=== PATIENT | male | born 1990 | race Caucasian/White ===

== ENCOUNTER 2019-01-21 00:09 | Emergency (ER) | payer MEDICAID ==
[~2019-01-21] VITALS: Ht 177.8 cm; Wt 82.0 kg
[2019-01-21] MEDS ORDERED: HALOPERIDOL LACTATE 5MG/ML VIAL IM STA (00:21)
[2019-01-21] MEDS ORDERED: ONDANSETRON HCL 4MG/2ML INJ IV STA (00:21)
[2019-01-21] MEDS ORDERED: MAGNESIUM/ALUMINUM HYDROXIDE/SIMETHICONE 30ML UDC PO STA (00:21)
[2019-01-21] MEDS ORDERED: SODIUM CHLORIDE 0.9% 1,000 ML IV ONE (00:21)
[2019-01-21] MEDS ORDERED: VISCOUS LIDOCAINE 2% 15 ML UDC PO STA (00:21)
[2019-01-21 00:31] LABS: BASOPHILS % 0.5 % (0.0-2.0); EOSINOPHILS % 1.9 % (0.0-5.0); HEMATOCRIT. 48.7 % (42.0-52.0); HEMOGLOBIN. 16.9 g/dL (14.0-18.0); LYMPHOCYTES % 25.1 % (20.0-50.0); MEAN CORPUSCULAR HEMOGLOBIN 30.6 pg (28.0-32.0); MEAN CORPUSCULAR VOLUME 88.4 fL (80.0-94.0); MEAN PLATELET VOLUME 8.5 fl (7.4-10.4); MONOCYTES % 9.1 % (2.0-8.0); NEUTROPHILS % 63.4 % (40.0-76.0); PLATELET 229 x1000/uL (130-400); RED BLOOD CELL COUNT 5.51 mill/uL (4.7-6.1); RED CELL DISTRIBUTION WIDTH 13.5 % (11.6-14.6)
[2019-01-21 00:34] LABS: CHLORIDE 110 mEq/L (98-107)
[2019-01-21 00:38] LABS: ETHANOL BLOOD < 10 mg/dL
[2019-01-21] MEDS ORDERED: HYDROCODONE/ACETAMINOPHEN 5/325MG TABLET PO ONE (01:45)
[2019-01-21 02:45] LABS: CLARITY URINE CLEAR (CLEAR); COLOR URINE YELLOW (YELLOW); KETONES URINE NEGATIVE (NEGATIVE); LEUKOCYTE ESTERASE URINE NEGATIVE (NEGATIVE); NITRITE URINE NEGATIVE (NEGATIVE); OCCULT BLOOD URINE 3+ (NEGATIVE); PH URINE 6.5 (4.5-8.0); PROTEIN URINE NEGATIVE (NEGATIVE); SPECIFIC GRAVITY URINE 1.007 (1.005-1.030); UROBILINOGEN URINE 0.2 E.U./dL (0.2-1.0)
[2019-01-21 02:57] LABS: *AMPHETAMINES SCREEN URINE PRESUMTIVE POSITIVE (NEGATIVE); *BARBITURATES SCREEN URINE NEGATIVE (NEGATIVE); *BENZODIAZEPINES SCREEN URINE NEGATIVE (NEGATIVE); *COCAINE SCREEN URINE PRESUMTIVE POSITIVE (NEGATIVE); CANNABINOID URINE SCREEN PRESUMTIVE POSITIVE (NEGATIVE); METHADONE URINE SCREEN NEGATIVE (NEGATIVE); OPIATES URINE SCREEN NEGATIVE (NEGATIVE)
[2019-01-21 02:58] LABS: PHENCYCLIDINE URINE SCREEN NEGATIVE (NEGATIVE)
[2019-01-21 03:22] VITALS: BP 119/75
== END 2019-01-21 03:24 | disposition home or self-care (01) ==
LOC: ER 00:09
DX: S20.212A Contusion of left front wall of thorax, initial encounter (principal); S50.01XA Contusion of right elbow, initial encounter; R07.89 Other chest pain; F12.10 Cannabis abuse, uncomplicated; F14.10 Cocaine abuse, uncomplicated; F15.10 Other stimulant abuse, uncomplicated; X58.XXXA Exposure to other specified factors, initial encounter; Y93.89 Activity, other specified; Y92.89 Other specified places as the place of occurrence of the external cause
CPT/HCPCS: 36415; 71045; 71100; 73080; 80053; 80305; 80320; 81003; 82962; 84484; 85025; 99284; J7030; Z7610; G0480

== ENCOUNTER 2019-01-29 12:21 | Emergency (ER) | payer MEDICAID ==
[~2019-01-29] VITALS: Ht 177.8 cm; Wt 91.0 kg
[2019-01-29] MEDS ORDERED: SODIUM CHLORIDE 0.9% 1,000 ML IV ONE (13:41)
[2019-01-29 14:06] LABS: BASOPHILS % 0.7 % (0.0-2.0); EOSINOPHILS % 3.1 % (0.0-5.0); HEMATOCRIT. 43.6 % (42.0-52.0); HEMOGLOBIN. 15.3 g/dL (14.0-18.0); LYMPHOCYTES % 25.1 % (20.0-50.0); MEAN CORPUSCULAR HEMOGLOBIN 30.9 pg (28.0-32.0); MEAN PLATELET VOLUME 8.1 fl (7.4-10.4); MONOCYTES % 11.6 % (2.0-8.0); NEUTROPHILS % 59.5 % (40.0-76.0); PLATELET 218 x1000/uL (130-400); RED BLOOD CELL COUNT 4.95 mill/uL (4.7-6.1); RED CELL DISTRIBUTION WIDTH 13.6 % (11.6-14.6)
[2019-01-29 14:12] LABS: CHLORIDE 108 mEq/L (98-107)
[2019-01-29 16:58] LABS: *AMPHETAMINES SCREEN URINE PRESUMTIVE POSITIVE (NEGATIVE); *BENZODIAZEPINES SCREEN URINE NEGATIVE (NEGATIVE); *COCAINE SCREEN URINE NEGATIVE (NEGATIVE); METHADONE URINE SCREEN NEGATIVE (NEGATIVE); OPIATES URINE SCREEN NEGATIVE (NEGATIVE)
[2019-01-29 16:59] LABS: *BARBITURATES SCREEN URINE NEGATIVE (NEGATIVE); CANNABINOID URINE SCREEN PRESUMTIVE POSITIVE (NEGATIVE); PHENCYCLIDINE URINE SCREEN NEGATIVE (NEGATIVE)
[2019-01-29 18:00] VITALS: BP 132/84
== END 2019-01-29 18:30 | disposition home or self-care (01) ==
LOC: ER 12:21
DX: F16.10 Hallucinogen abuse, uncomplicated (principal); F15.10 Other stimulant abuse, uncomplicated; R07.9 Chest pain, unspecified; F14.10 Cocaine abuse, uncomplicated
CPT/HCPCS: 36415; 71045; 80053; 80305; 84484; 85025; 93005; 99284; J7030

== ENCOUNTER 2020-09-03 13:22 | Emergency (ER) | payer MEDICAID, OTHER ==
[~2020-09-03] VITALS: Ht 180.3 cm; Wt 112.0 kg
[2020-09-03] MEDS ORDERED: IBUPROFEN 600MG TABLET PO ONE (14:30)
[2020-09-03 15:06] VITALS: BP 130/96
[2020-09-03] MEDS ORDERED: IBUP-2029 MT (15:46)
== END 2020-09-03 15:55 | disposition home or self-care (01) ==
LOC: ER 13:22
DX: M25.511 Pain in right shoulder (principal); R03.0 Elevated blood-pressure reading, without diagnosis of hypertension; F17.200 Nicotine dependence, unspecified, uncomplicated; X50.0XXA Overexertion from strenuous movement or load, initial encounter; Y93.89 Activity, other specified; Y92.69 Other specified industrial and construction area as the place of occurrence of the external cause
CPT/HCPCS: 73030; 99283; A4565

== ENCOUNTER 2020-09-11 06:44 | Emergency (ER) | payer OTHER ==
[~2020-09-11] VITALS: Ht 180.3 cm; Wt 99.2 kg
[~2020-09-11 06:44] MED LIST: IBUP-2029 MT
[2020-09-11 06:46] VITALS: BP 139/81
[2020-09-11] MEDS ORDERED: HYDROCODONE/ACETAMINOPHEN 5/325MG TABLET PO ONE (08:00)
[2020-09-11] MEDS ORDERED: IBUP-2030 MT (09:18)
[2020-09-11] MEDS ORDERED: TRAM50TA3 MT (09:18)
== END 2020-09-11 09:51 | disposition home or self-care (01) ==
LOC: ER 06:44
DX: S49.81XA Other specified injuries of right shoulder and upper arm, initial encounter (principal); F14.10 Cocaine abuse, uncomplicated; F15.10 Other stimulant abuse, uncomplicated; X50.0XXA Overexertion from strenuous movement or load, initial encounter; Y93.89 Activity, other specified; Y92.89 Other specified places as the place of occurrence of the external cause; Y99.8 Other external cause status; Z79.899 Other long term (current) drug therapy
CPT/HCPCS: 73000; 73030; 99284

== ENCOUNTER 2020-12-18 11:44 | Emergency (ER) | payer OTHER ==
[~2020-12-18] VITALS: Ht 180.3 cm; Wt 70.0 kg
[~2020-12-18 11:44] MED LIST changes: +IBUP-2030 MT; +TRAM50TA3 MT
[2020-12-18] MEDS ORDERED: CETI10TA6 MT (13:24)
[2020-12-18] MEDS ORDERED: PERM60CR4 TP (13:24)
[2020-12-18 13:46] VITALS: BP 144/70
== END 2020-12-18 13:49 | disposition home or self-care (01) ==
LOC: ER 11:44
DX: B86 Scabies (principal); F14.10 Cocaine abuse, uncomplicated; F15.10 Other stimulant abuse, uncomplicated
CPT/HCPCS: 99282

== ENCOUNTER 2021-01-23 01:40 | Emergency (ER) | payer OTHER ==
[~2021-01-23] VITALS: Ht 180.3 cm; Wt 88.0 kg
[~2021-01-23 01:40] MED LIST changes: +CETI10TA6 MT; +PERM60CR4 TP
[2021-01-23 02:00] VITALS: BP 133/84
[2021-01-23] MEDS ORDERED: KETOROLAC 60MG/2ML VIAL IM ONE (03:00)
== END 2021-01-23 03:12 | disposition left against medical advice (07) ==
LOC: ER 01:40
DX: S46.911A Strain of unspecified muscle, fascia and tendon at shoulder and upper arm level, right arm, initial encounter (principal); F17.210 Nicotine dependence, cigarettes, uncomplicated; X50.0XXA Overexertion from strenuous movement or load, initial encounter; X50.9XXA Other and unspecified overexertion or strenuous movements or postures, initial encounter; Y93.89 Activity, other specified; Y92.89 Other specified places as the place of occurrence of the external cause; Y99.9 Unspecified external cause status
CPT/HCPCS: 99283; J1885; A4565

== ENCOUNTER 2024-10-21 17:49 | Emergency (ER) | payer MEDICAID, OTHER ==
[~2024-10-21] VITALS: Ht 175.3 cm; Wt 132.0 kg
[2024-10-21 17:59] VITALS: TEMP 36.9; O2SAT 100
[2024-10-21 18:40] LABS: CLARITY URINE CLEAR (CLEAR); COLOR URINE DARK YELLOW (YELLOW); GLUCOSE URINE NEGATIVE (NEGATIVE); KETONES URINE 2+ (NEGATIVE); LEUKOCYTE ESTERASE URINE NEGATIVE (NEGATIVE); NITRITE URINE NEGATIVE (NEGATIVE); OCCULT BLOOD URINE NEGATIVE (NEGATIVE); PH URINE 6.5 (4.5-8.0); PROTEIN URINE 1+ (NEGATIVE); SPECIFIC GRAVITY URINE 1.033 (1.005-1.030)
[2024-10-21 19:05] LABS: RBC URINE NONE SEEN /hpf (0-2); WBC URINE 0-2 /hpf (0-2)
[2024-10-21 19:06] LABS: BACTERIA URINE TRACE; SQUAMOUS EPITHELIAL CELL URINE RARE /lpf (RARE/1+)
[2024-10-21] MEDS ORDERED: IBUP-2028 MT (20:31)
[2024-10-21] MEDS ORDERED: TOPUD PO (20:35)
[2024-10-21 21:11] VITALS: BP 126/76; PULSE 81; RESP 18; O2SAT 100
[2024-10-24 04:10] LABS: CHLAMYDIA TRACHOMATIS NAA Negative (Negative); NEISSERIA GONORRHOEAE NAA Negative (Negative)
== END 2024-10-21 21:14 | disposition home or self-care (01) ==
LOC: ER 17:49
DX: N43.2 Other hydrocele (principal); N50.3 Cyst of epididymis; F19.90 Other psychoactive substance use, unspecified, uncomplicated; F12.90 Cannabis use, unspecified, uncomplicated; Z79.899 Other long term (current) drug therapy
CPT/HCPCS: 76870; 81003; 87491; 87591; 93976; 99284

== ENCOUNTER 2024-11-15 17:06 | Emergency (ER) | payer MEDICAID ==
[~2024-11-15] VITALS: Ht 170.2 cm; Wt 90.0 kg
[~2024-11-15 17:06] MED LIST changes: +IBUP-2028 MT; +TOPUD PO
[2024-11-15 17:13] VITALS: O2SAT 98
[2024-11-15 18:26] LABS: BASOPHILS % 0.4 % (0.0-2.0); EOSINOPHILS % 1.5 % (0.0-5.0); HEMATOCRIT. 45.0 % (42.0-52.0); HEMOGLOBIN. 15.6 g/dL (14.0-18.0); LYMPHOCYTES % 12.5 % (20.0-50.0); MEAN PLATELET VOLUME 8.6 fl (7.4-10.4); MONOCYTES % 5.8 % (2.0-8.0); NEUTROPHILS % 79.8 % (40.0-76.0); PLATELET 248 x1000/uL (130-400); RED BLOOD CELL COUNT 5.26 mill/uL (4.7-6.1); RED CELL DISTRIBUTION WIDTH 13.9 % (11.6-14.6)
[2024-11-15 18:40] LABS: CREATININE 1.1 mg/dL (0.6-1.3)
[2024-11-15 18:41] LABS: ETHANOL BLOOD < 10 mg/dL (<10); UREA NITROGEN BLOOD 17 mg/dL (9-23)
[2024-11-15 18:42] LABS: ASPARTATE AMINOTRANSFERASE 41 IU/L (<34)
[2024-11-15 18:43] LABS: BILIRUBIN DIRECT 0.3 mg/dL (<=3.0); BILIRUBIN TOTAL 0.7 mg/dL (0.1-1.0); PROTEIN TOTAL 7.6 g/dL (6.0-8.3)
[2024-11-15] MEDS: FAMOTIDINE 20MG TABLET PO ONE (18:50)
[2024-11-15] MEDS: ONDANSETRON 4MG ODT PO ONE (18:50)
[2024-11-15] MEDS: MAGNESIUM/ALUMINUM HYDROXIDE/SIMETHICONE 30ML UDC PO ONE (18:50)
[2024-11-15] MEDS ORDERED: ONDA-239 PO (19:11)
[2024-11-15 19:28] VITALS: BP 102/72; PULSE 95; RESP 15; TEMP 36.7; O2SAT 99
== END 2024-11-15 19:45 | disposition home or self-care (01) ==
LOC: ER 17:06
DX: K52.9 Noninfective gastroenteritis and colitis, unspecified (principal); F14.10 Cocaine abuse, uncomplicated; F12.10 Cannabis abuse, uncomplicated; I10 Essential (primary) hypertension; Z79.899 Other long term (current) drug therapy; Z98.890 Other specified postprocedural states
CPT/HCPCS: 80076; 80048; 80320; 83690; 85025; 36415; 74176; 99284; Q0162; G0480

== ENCOUNTER 2024-12-08 22:26 | Emergency (ER) | payer MEDICAID ==
[~2024-12-08] VITALS: Ht 175.3 cm; Wt 105.0 kg
[~2024-12-08 22:26] MED LIST changes: +ONDA-239 PO
[2024-12-08 22:50] VITALS: O2SAT 97
[2024-12-08 22:51] VITALS: BP 119/71; PULSE 90; RESP 16; TEMP 36.6; O2SAT 98
== END 2024-12-09 00:50 | disposition left against medical advice (07) ==
LOC: ER 22:26
DX: N50.819 Testicular pain, unspecified (principal); I10 Essential (primary) hypertension; F14.90 Cocaine use, unspecified, uncomplicated; F15.90 Other stimulant use, unspecified, uncomplicated; Z98.890 Other specified postprocedural states; Z79.899 Other long term (current) drug therapy
CPT/HCPCS: 99282